=== PATIENT | male | born 1995 | race Asian ===

== ENCOUNTER 2017-01-11 08:43 | Day surgery (SDC) | payer BC ==
[~2017-01-11 08:43] MED LIST: Buffered Lidocaine 0.9% SYRIN* 5 ML/SYR SYRINGE INTRADERM ONE; Bupivacaine 0.5% W/EPI SDV* 10 ML VIAL INJ ONE; EPINEPHrine AMP 1 MG/ML ONE
[2017-01-11] MEDS ORDERED: Clindamycin 900 MG IVPREMIX(* 900 MG/50 ML SDV IV ONE (08:44)
[2017-01-11] MEDS ORDERED: Buffered Lidocaine 0.9% SYRIN* 5 ML/SYR SYRINGE ONE (09:02)
[2017-01-11] MEDS ORDERED: Bupivacaine 0.25% W/EPI* 50 ML VIAL ONE (09:56)
[2017-01-11] MEDS ORDERED: EPINEPHrine AMP 1 MG/ML ONE (09:56)
[2017-01-11] MEDS ORDERED: fentaNYL* 50 MCG/ML 2 ML VIAL (100 MCG VIAL) ONE ×2 (10:07→12:45)
[2017-01-11] MEDS ORDERED: Midazolam* 1 MG/ML 2 ML VIAL (2 MG) ONE (10:08)
[2017-01-11] MEDS ORDERED: Lidocaine 2% PF * 5 ML VIAL ONE (10:34)
[2017-01-11] MEDS ORDERED: Propofol* 10 MG/ML 20 ML BTL IV PUSH ONE (10:34)
[2017-01-11] MEDS ORDERED: HYDROmorphone* 1 MG/ML 1 ML SYR IV PRN (11:03)
[2017-01-11] MEDS ORDERED: Ketorolac INJ* 30 MG/ML 1 ML VIAL IV PRN (11:03)
[2017-01-11] MEDS ORDERED: DiMENhydriNATE IV* 50 MG/ML VIAL IV PUSH PRN (11:03)
[2017-01-11] MEDS ORDERED: Ondansetron INJ* 2 MG/ML VIAL IV PRN (11:03)
[2017-01-11] MEDS ORDERED: fentaNYL* 50 MCG/ML 2 ML VIAL (100 MCG VIAL) IV PRN (11:03)
[2017-01-11] MEDS ORDERED: HYDROcodone/ACETAMIN 5-325 MG* 1 TAB PO PRN (11:03)
[2017-01-11 15:53] VITALS: BP 145/94
--- NOTE | 2017-01-11 21:05 | RAD ---
INDICATION: RIGHT knee ACL reconstruction. COMPARISON: December 14, 2016 MRI. TECHNIQUE: 51.2 seconds fluoroscopy FINDINGS: Spot images document an instrument at the level of a tibial tunnel for ACL reconstruction. IMPRESSION: Procedural fluoroscopy. CPT II Codes: 6045F
--- NOTE | 2017-01-12 22:50 | OP ---
OPERATIVE REPORT: DATE OF OPERATION: 01/11/17 DATE OF : 89 SURGEON: Tee White MD. CAVALRY OFFICER: CATRACHITO Matson. ANESTHESIOLOGIST: Prasanna Buckley MD. ANESTHESIA: General anesthesia, regional femoral nerve block anesthesia. PRE-OP DIAGNOSES: 1. Right knee anterior cruciate ligament tear. 2. Right knee medial meniscus tear. POST-OP DIAGNOSES: 1. Right knee anterior cruciate ligament tear. 2. Right knee medial meniscus tear. OPERATIVE PROCEDURES: 1. Right knee arthroscopic anterior cruciate ligament reconstruction with bone - patella-bone autograft. 2. Right knee arthroscopic medial meniscus repair. 3. Right knee arthroscopic anterior synovectomy. IV FLUIDS: 1350 cc of lactated Ringer's. ANTIBIOTICS: 900 cc clindamycin IV. TOURNIQUET TIME: 198 minutes total, 41 minutes up followed by 8 minutes down, followed by 37 minutes up, followed by 24 minutes down, followed by 120 minutes up, that was at 300 mmHg. COMPLICATIONS: None. SPECIMEN: None. IMPLANTS: Mitek Tahir and Tahir Natalie Biocomposite screws, 9 mm x 23 mm in the femur and tibia. Fiber wire #5 suture used. Cancellous bone chips, allograft, 5 cc. ESTIMATED BLOOD LOSS: Minimal. COMPLICATIONS: None. INDICATIONS FOR PROCEDURE: The patient is a 21-year-old man, [employer] student, who graduates at the end of the February from the [employer] at [employer], who presented to me in clinic with a right knee injury. The patient is originally from [place]. 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 He first sustained a knee injury in September 2016, three to four months preoperative. The patient was trying to create some space for a jump shot and his right knee gave out and he fell to the floor. He eventually made his way to the side lines and then his right knee gave out on the side lines. The patient had to be helped to walk the 100 [address] to his residence. Four days later , he was seen at [facility] and given a knee brace. Two weeks later, he was able to walk reasonably normal. Seven weeks later, he had not resumed playing basketball, but he was just dribbling a basketball and he tweaked his right knee. Three weeks later, he similarly tweaked his knee. The patient had not done any physical therapy and saw me in clinic for the first time on . I diagnosed him with likely ACL tear based on his physical exam. I was also concerned about a medial meniscus tear given medial joint line tenderness to palpation. The patient had an MRI which showed ACL tear and medial meniscus tear. At his first clinic visit, on 12/27/16, we discussed the ACL and medial meniscus tear as visualized on the MRI and shown also on physical examination and history. We discussed nonoperative and operative management of ACL tears as well as we discussed the use of different graft options for ACL reconstruction. We also talked about different treatments for meniscus tears. I sent the patient to Physical Therapy for rehabilitation and decided to think about what his preferred treatment option would be. I then saw him back on 01/03/17 in clinic. The patient has decided to go forward with ACL reconstruction surgery and opted for slva-[id number]-biwy autograft. At both clinic visits, we discussed benefits, risks, and possible complications of the surgery including bleeding, infection, nerve and blood vessel injury, knee arthritis, knee stiffness, and graft re-rupture as well as meniscus re- tear. The patient opted to go forward with the procedure. The patient had a better idea of what postoperative rehabilitation would be like based on his rehab PT sessions. I asked for cancellous bone chips to be available. DESCRIPTION OF PROCEDURE: Preoperative written consent was obtained. Operative extremity was marked in preop holding. The patient was taken back to the operating room and placed supine on the operating room table. General anesthesia was induced only after the regional femoral nerve block had been done by Dr. Buckley. With the patient under general anesthesia, we did an exam under anesthesia. The patient had significant laxity with Tammy and anterior drawer as he had in clinic. We placed a right proximal thigh tourniquet, but did not yet elevate it. A lateral post was placed on the bed. The right lower extremity was prepped and draped. Surgical time-out was performed. Esmarch was applied. Tourniquet was elevated to 300 mmHg. My periodicals library assistant held the knee in 90 degrees of flexion. Knee anterolateral arthroscopy portal was created. Diagnostic arthroscopy was commenced. Patellofemoral compartment demonstrated no articular cartilage lesion, although it did show significant synovitis about it. I then moved to the medial compartment. No significant articular cartilage lesions. There was however, a vertical tear in the posterior horn and posterior body of the medial meniscus. It was full thickness , palpable from undersurface and superior surface of the meniscus. I would say it was in the outer portion of the red-white zone or at the junction of the red- white and red-red zones. With my arthroscopic probe, I measured 4 to 5 mm of the rim peripheral to that tear. The tear was clearly unstable, as when I placed a probe in, it clearly pulled the inner component into the center of the medial compartment. I had made an anteromedial knee arthroscopy portal under direct visualization and I did this probing through that anteromedial portal. Given the relative peripheral location of this tear, its vertical shape, the patient's young age, high activity level, and the fact that a concurrent ACL tear was being done, I thought that the odds of healing were sufficiently high and it would be sufficiently important for him to retain enough meniscus as possible such that it was warranted from my attempting a meniscal repair. I asked for the Fast-Fix meniscal fixation devices to be opened. Working through the anteromedial portal, I used a ball-tipped rasp to rasp the edges of the meniscus tear inner and outer surface. I then switched my arthroscope into the anteromedial portal and entered a sled into the anterolateral portal followed by a Fast-Fix device. I placed a slightly oblique horizontal mattress stitch in the meniscus through the anterolateral portal, aiming away from neurovascular bundle. Prior to placement of that first stitch, I was unsure whether I would use 1 or 2 Fast-Fix stitches. I placed 1 stitch and it nicely apposed the meniscal tissue at the tear and I was very happy with reduction. However, looking more posterior and central along the posterior horn of the meniscus, I felt there was more tissue that could be stabilized. Therefore, I switched the arthroscope to the anterolateral portal and working through anteromedial portal , placed one additional Fast-Fix stitch, slightly oblique to horizontal mattress stitch in the posterior horn of the medial meniscus. I probed the repair. It appeared stable. Meniscus tear appeared well reduced. There were no visible buttons or anything like that. I then moved on to continue my diagnostic arthroscopy. While waiting for the Fast- Fix fixation device earlier, I had already looked in the intracondylar notch and noticed an essentially absent ACL ligament. I looked up more closely now and saw essentially no fibers proximally and mid substance. There were some fibers at the insertion of the ACL, but most of the substance of the ACL had dissolved, disappeared. There were several fibers adherent to the PCL, but that is it. I moved to the lateral compartment. There is no lateral meniscus tear or lateral cartilage injury. I decided to begin my graft harvest. De Beasley leg briscoe was obtained. While putting the De Beasley leg briscoe on the table, my glove got caught in it. Therefore, I decided to err on the side of caution, avoid any possible contamination and obtain a new De Beasley briscoe. We dropped the tourniquet while a new De Beasley leg briscoe could be obtained. Therefore, we dropped the tourniquet for a total of 8 minutes. New De Beasley leg briscoe base plate was applied to the table. This did not involve the leg briscoe, but rather the base plate on the operative room table. The Esmarch was reapplied and tourniquet was re-inflated. The knee was placed in approximately 80 degrees of flexion. An anterior midline longitudinal skin incision was made from 1 to 2 fingerbreadths proximal to distal pole of the patella to 2-3 fingerbreadth distal to the tibial tubercle. I switched knifes. I continued down through the subcutaneous tissue and to the paratenon. With feathering strokes , I removed tissue off the superficial aspect of the paratenon, medial and lateral. I then cut through the paratenon, and with similarly feathering strokes, released the paratenon off of the patellar tendon as well as off of the distal aspect of the patella and the proximal aspect of the tibial tubercle. The patient's patellar tendon looked robust. I measured it as 30 mm wide distally. I measured it as 37 mm wide proximally when it was fully flattened out against a Donna deep to it. This was sufficient width to obtain a 10 mm graft from its central portion. I marked with a marker a mid point of the patellar tendon along its length. I then used a double blade knife, with blade by 10 mm, to cut a longitudinal line through the middle 10 mm of tendon from proximal to distal. Donna clamp opening assured me that I had cut all the way through the tendon. I next removed approximately 25 mm bone plugs, 10 mm in thickness from the distal patella and proximal tibial tubercle using an oscillating saw. I cooled off the saw regularly as it heated up. I drilled 1 hole in the patellar bone plug and two holes in the tibial tubercle bone plug. Graft was taken to the back table. I then closed the patellar tendon with 5 figure- of-eight stitches, buried, using Vicryl 0 suture. Tourniquet was dropped. Attention was directed now to the back table. I next prepared my srnj-ealzwhyz-skea autograft. The tendon looked in excellent condition, as did the bone. There was no fat to remove. I shaped the bone plugs slightly using a rongeur and crimpers, which I call smushers, from [employer]. I used an oscillating saw to take off 2 to 3 mm of each end of each bone plug, leaving my bone plugs 23 mm in length. I bulleted the patellar bone plug. I placed fiber wire #5 stitches, one in the proximal bone plug and two in the distal bone plug, 1 stitch on each side. I used to place 2 whipstitches into the patellar tendon itself prior to going for bone as a backup in case the bone block were to fail. My graft easily moved through a 10 mm sizer and barely moved through a 9.5 mm sizer. I put my graft under tension and covered it with a wet sponge. I next directed my attention back to the knee. Esmarch was reapplied and tourniquet was reinflated. 23 minutes had passed, so I was comfortable restarting an elongated tourniquet time. I used previous anterolateral and anteromedial knee arthroscopy portals and evaluated the intercondylar notch. I debrided remnant ACL with an arthroscopic shaver. I then cleared off the lateral wall of the intercondylar notch using a vapor. I next created a new anteromedial portal, this done with the knee in approximately 105 degrees of flexion, with this portal more medial and more inferior, to help with my eventual placement of femoral tunnel. I used this new anteromedial portal to do my notchplasty with an arthroscopic bur creating a nice Gothic arch and opening up that space for a new robust graft. Using a Hilary awl through my new anteromedial portal, I marked 10:30 o'clock in the notch and this corresponded with my orientation outside of the knee. I then hyperflexed the knee to approximately 105 or 110 degrees of flexion. I placed a Beath pin using a 7 mm around the back guide into the femur. Evaluating the position of this pin versus the posterior wall, I thought it looked a little close. I also did not like perfectly my trajectory. I noticed that the knee was not flexed as much as it could be possibly. Therefore, I removed the first Beath pin. I flexed the knee additionally, which required us to remove the lateral post from the bed, which we had not done previously. I flexed the knee up to approximately 115 degrees of flexion, the most allowed on the bed. I then replaced the 7 mm posterior offset guide and placed a new Beath pin. I was happier with this placement. Very carefully introducing a 10 mm reamer, I then reamed a new tunnel, 30 mm in depth. I removed drill and pin and used arthroscopic shaver to remove detritus. The tunnel looked in excellent in position. I visualized it also through the anteromedial portal, principally for board examiners but also for myself. I next addressed the tibia. The knee was changed to 90 degrees of flexion. I identified the posterior aspect of the anterior horn of the lateral meniscus as well as some remaining ACL fibers. I used these to ria with Bovie electrocautery where I wanted my tunnel to exit. I placed a Beath pin using a 55 degree tibial ACL guide. I took mini C-arm images to confirm the central location in the coronal plane as well as an adequate position in the sagittal plane, just posterior to the roof of the intercondylar notch. I liked this position. I then reamed a 10 mm tunnel through the tibia protecting the tip of the pin with a curette. I then removed the instruments and shaved up the detritus with an arthroscopic shaver. I placed the Beath pin through the femur. Placed a passing stitch and used that to place my graft. I placed a nitinol wire anterior to the femoral graft and then tapped it with an 8 mm and then a 9 mm tap. I placed a 9 mm x 23 mm Biocomposite screw. The fit was excellent. Graft position looked good. I then fully extended the knee. The distal graft was of exactly the right length. I placed nitinol wire anterior to the graft and on the cancellous side of the graft. I tapped a 9 and placed a 9 x 23 mm Natalie screw. I did so with the knee in full extension and with me pulling hard on the graft tension. Tammy and anterior drawer test were next performed. They showed a solid ACL by exam. We next arthroscoped the knee in multiple positions of knee flexion and the graft looked like it was in correct position. Sutures ends were cut. The bone chips from the autograft were then added to the bony defects of the patella and tibial tubercle as well as cancellous allograft chips. Paratenon was next closed with a running stitch using Vicryl 0 suture. Subcutaneous tissue was next closed with buried simple stitches using Vicryl 2-0 suture. Arthroscopy skin incisions were closed with ofztua-gr-nthrs stitches using nylon 4-0 suture. Long anterior longitudinal skin incision was closed with a running stitch using nylon 4-0 suture. Xeroform, 4x4s, ABD, sterile Webril, Joshua bandage from the foot to proximal thigh. Tourniquet was dropped. Cooling unit was placed. Knee brace was placed , locked in extension. The patient was awakened and LMA removed. DISPOSITION: The patient postoperatively will receive Percocet as needed for pain, Bactrim x5 days for infection prophylaxis and aspirin x2 weeks for DVT prophylaxis. The patient will start physical therapy immediately at the beginning of the next week on an ACL and medial meniscus repair rehab protocol. He will see me in 10 to 14 days postoperatively. [id number]/[facility] #: [id number] [place]
== END 2017-01-11 16:28 | disposition home or self-care (01) ==
LOC: OR 08:43
PROVIDERS: ATTEND Orthopaedic Surgery
DX: S83.511A Sprain of anterior cruciate ligament of right knee, initial encounter (principal); J45.909 Unspecified asthma, uncomplicated; S83.241A Other tear of medial meniscus, current injury, right knee, initial encounter; X50.0XXA Overexertion from strenuous movement or load, initial encounter; Y93.67 Activity, basketball; Y92.310 Basketball court as the place of occurrence of the external cause
CPT/HCPCS: 76001; C1776; J0171; J2250; J2704; J3010